=== PATIENT | female | born 1965 | race African-American/Black ===

== ENCOUNTER 2019-05-25 03:18 | Emergency (ER) | payer OTHER ==
[~2019-05-25] VITALS: Ht 162.6 cm; Wt 70.3 kg
[2019-05-25] MEDS ORDERED: ADVAIR 500-501 EACH INH (03:24)
[2019-05-25] MEDS ORDERED: SUPER THERAVIT1 EACH PO (03:25)
[2019-05-25 04:15] LABS: ABSOLUTE NEUTROPHILS 7.9 thou/uL (1.4-8.2); BASOPHILS 1.1 % (0.0-2.0); HEMATOCRIT 40.4 % (37.0-47.0); LYMPHOCYTES 3.6 % (24.0-44.0); MCH 26.4 pg (26.0-34.0); MCHC 32.2 g/dL (28.0-37.0); MCV 81.9 fL (80.0-100.0); MONOCYTES 1.9 % (1.0-8.0); PLATELET COUNT 226 thou/uL (150-400); POLYS 93.4 % (36.0-66.0); RBC 4.93 mil/uL (4.20-5.00); RDW 15.4 % (10.5-14.5); WBC 8.4 thou/uL (4.0-11.0)
[2019-05-25 04:20] LABS: CALCIUM 9.2 mg/dL (8.5-10.1); POTASSIUM 3.8 mmol/L (3.5-5.1)
[2019-05-25 04:27] LABS: ALBUMIN 3.7 g/dL (3.4-5.0); TOTAL BILIRUBIN 0.4 mg/dL (<0.1-1.0); TOTAL PROTEIN 7.6 g/dL (6.4-8.2)
[2019-05-25 04:30] LABS: URINE BILIRUBIN NEGATIVE (Negative); URINE BLOOD NEGATIVE (Negative); URINE CLARITY CLEAR; URINE COLOR YELLOW; URINE GLUCOSE-RANDOM* NEGATIVE (Negative); URINE KETONES NEGATIVE (Negative); URINE LEUKOCYTES-REFLEX TRACE (Negative); URINE NITRITE-REFLEX NEGATIVE (Negative); URINE PROTEIN (DIPSTICK) NEGATIVE (Negative); URINE SPECIFIC GRAVITY 1.025 (1.005-1.035)
[2019-05-25 06:11] VITALS: BP 102/64
[2019-05-25] MEDS ORDERED: ZOFRAN ODT4 MG PO (06:23)
[2019-05-25] MEDS ORDERED: NORCO 5-325 TA1 EAC1 PO (06:23)
--- NOTE | 2019-05-26 09:49 | EKG ---
[facility] [place] [address] ELECTROCARDIOGRAM REPORT Name: ERIC PHAN Room #: DEP [facility]#: [id number] Admission: 05/25/19 Attend Phys: Discharge: 05/25/19 Date of : 65 Report #: [id number] THIS REPORT FOR: cc: Arelis Rubi MD, Teresa MD Lundgren,Max Snyder MD 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 05/26/19 [id number] Max Cardenas MD, [facility] /EPI
== END 2019-05-25 06:30 | disposition home or self-care (01) ==
LOC: ER 03:18
PROVIDERS: Emergency Medicine Emergency Medical Services
DX: K52.9 Noninfective gastroenteritis and colitis, unspecified (principal); R11.2 Nausea with vomiting, unspecified; Z79.899 Other long term (current) drug therapy